=== PATIENT | male | born 1930 | race Caucasian/White ===

== ENCOUNTER 2020-08-04 07:46 | Inpatient (IN) | payer MEDICARE ==
[~2020-08-04] VITALS: Ht 172.7 cm; Wt 74.8 kg
[2020-08-04 08:55] LABS: APTT 20.8 SECONDS (22.8-39.4); CALC OSMOLALITY 273 mosm/kg (275-300); CALCIUM 8.1 mg/dL (8.5-10.1); CARBON DIOXIDE 26.1 mmol/L (21.0-32.0); CHLORIDE - SERUM 103 mmol/L (98-107); CREATININE - SERUM 1.2 mg/dL (0.6-1.3); GLUCOSE 118 mg/dL (74-106); INR 1.14 (0.85-1.17); POTASSIUM - SERUM 4.6 mmol/L (3.5-5.1); PROTIME 13.5 SECONDS (11.6-15.0); SODIUM 136 mmol/L (136-145); UREA NITROGEN 14 mg/dL (7-18); eGFR NON AFRICAN AMERICAN 61 mL/min (90-120)
[2020-08-04 09:16] LABS: ALBUMIN 3.3 g/dL (3.4-5.0); ALKALINE PHOSPHATASE 127 U/L (30-120); ALT (SGPT) 15 U/L (10-68); BILIRUBIN - TOTAL 0.35 mg/dL (0.2-1.3); CKMB 1.4 U/L (0.0-3.6); CREATINE KINASE 119 UL (21-232); PRO BNP 12046 pg/mL (0-450); PROTEIN - SERUM 7.1 g/dL (6.4-8.2); TROPONIN-I 0.064 ng/mL (0.000-0.060)
--- NOTE | 2020-08-04 09:25 | NUR ---
TROP 0.064 DR ALFONSO NOTIFIED
[2020-08-04 09:35] LABS: BASOPHILS 2.1 % (0-2); EOSINOPHILS 0.5 % (0-7); LYMPHOCYTES 22.5 % (15-50); MCHC 28.5 g/dL (31.0-37.0); MCV 65.4 fL (80.0-100.0); MEAN PLATELET VOLUME 7.2 fL (7.4-10.4); MONOCYTES 5.7 % (2-11); NEUTROPHILS 69.2 % (40-80); PLATELET COUNT 487 10x3/uL (130-400); RDW 19.6 % (11.5-14.5); WBC 8.1 10x3/uL (4.8-10.8)
[2020-08-04 09:37] LABS: HEMATOCRIT 16.4 % (42.0-54.0); HEMOGLOBIN 4.7 g/dL (13.5-17.5); MCH 18.7 pg (26.0-34.0)
--- NOTE | 2020-08-04 09:43 | NUR ---
HGB 4.[address] ALFONSO NOTIFIED
[2020-08-04 10:32] LABS: % SATURATION 2 % (15-55); IRON 10 ug/dl (35-150); TOTAL IRON BIND CAPACITY 348 ug/dl (260-445); UNSAT IRON BIND CAPACITY 338 ug/dl (150-375)
[2020-08-04 17:45] VITALS: BP 164/92
[2020-08-04 19:00] VITALS: BP 166/82
--- NOTE | 2020-08-04 19:58 | NUR ---
3rd unit of prbc started at this time
[2020-08-04 20:00] VITALS: BP 160/89
[2020-08-04 21:00] VITALS: BP 162/90
--- NOTE | 2020-08-04 21:08 | NUR ---
PT ASSISTED INTO STANDING POSITION TO USE URINAL. PT ASSISTED BACK INTO BED INTO A POSITION OF COMFORT. NO ACUTE DISTRESS NOTED, BED IN LOWEST POSITION, CALL LIGHT WITHIN REACH
[2020-08-04 22:00] VITALS: BP 152/82
[2020-08-04 23:00] VITALS: BP 137/78
[2020-08-05] VITALS (7 sets, daily range): BP systolic 114–143; BP diastolic 50–70; Ht 172.7 cm; Wt 74.8 kg
[2020-08-05 07:33] LABS: ALBUMIN 2.9 g/dL (3.4-5.0); BILIRUBIN - TOTAL 0.78 mg/dL (0.2-1.3); CALCIUM 7.6 mg/dL (8.5-10.1); CARBON DIOXIDE 24.7 mmol/L (21.0-32.0); CREATININE - SERUM 1.1 mg/dL (0.6-1.3); PROTEIN - SERUM 6.3 g/dL (6.4-8.2)
[2020-08-05 07:36] LABS: ANION GAP 12.9 mmol/L (8-16); POTASSIUM - SERUM 3.6 mmol/L (3.5-5.1)
--- NOTE | 2020-08-05 09:16 | NUR ---
SPOKE WITH LAURA IN LAB, STATED SHE WOULD NOTIFY TECHS THAT PT H&H WERE TO BE DONE STAT
[2020-08-05 09:46] LABS: BASOPHILS 1.2 % (0-2); EOSINOPHILS 0.7 % (0-7); LYMPHOCYTES 14.5 % (15-50); MCH 22.1 pg (26.0-34.0); MEAN PLATELET VOLUME 7.4 fL (7.4-10.4); MONOCYTES 8.6 % (2-11); PLATELET COUNT 407 10x3/uL (130-400); RDW 23.7 % (11.5-14.5); WBC 8.8 10x3/uL (4.8-10.8)
[2020-08-05 09:52] LABS: HEMATOCRIT 27.5 % (42.0-54.0); HEMOGLOBIN 8.5 g/dL (13.5-17.5); MCV 71.2 fL (80.0-100.0); RBC 3.86 10x6/uL (4.20-6.10)
[2020-08-05 15:41] LABS: HEMATOCRIT 29.8 % (42.0-54.0); HEMOGLOBIN 8.9 g/dL (13.5-17.5)
[2020-08-05 22:11] LABS: HEMATOCRIT 27.2 % (42.0-54.0); HEMOGLOBIN 8.4 g/dL (13.5-17.5)
--- NOTE | 2020-08-05 22:39 | NUR ---
PATIENT REFUSING TO WEAR TELEMENTRY MONITOR. STATES""GET THIS DAM THING OFF ME" ATTEMPTED TO EDUCATE ON REASON FOR TELEMENTRY. STATES HE DOESNT HAVE HEART PROBLEMS AND INSIST I TAKE IT OFF. TELEMENTRY REMOVED AND SENT BACK TO ICU TO BAMBI ACOSTA
--- NOTE | 2020-08-06 01:46 | NUR ---
PATIENT HAS PULLED OUT IV. REFUSES TO LET THIS NURSE RESTART IT. STATES" DAM THING KEEPS GETTING TANGLED UP AND IM TRYING TO SLEEP."
[2020-08-06 03:41] LABS: ANION GAP 11.5 mmol/L (8-16); BILIRUBIN - TOTAL 0.32 mg/dL (0.2-1.3); CALCIUM 7.7 mg/dL (8.5-10.1); CARBON DIOXIDE 27.5 mmol/L (21.0-32.0); CREATININE - SERUM 1.3 mg/dL (0.6-1.3); PROTEIN - SERUM 6.5 g/dL (6.4-8.2)
[2020-08-06 03:43] LABS: HEMATOCRIT 26.9 % (42.0-54.0); HEMOGLOBIN 8.3 g/dL (13.5-17.5)
--- NOTE | 2020-08-06 03:53 | NUR ---
I have reviewed this patient and I concur with the Shift Assessment completed by the Licensed Practical Nurse today this shift.
[2020-08-06 06:48] LABS: BASOPHILS 1.3 % (0-2); EOSINOPHILS 2.1 % (0-7); HEMATOCRIT 28.8 % (42.0-54.0); HEMOGLOBIN 8.8 g/dL (13.5-17.5); LYMPHOCYTES 14.9 % (15-50); MCH 22.1 pg (26.0-34.0); MCHC 30.7 g/dL (31.0-37.0); MEAN PLATELET VOLUME 7.3 fL (7.4-10.4); NEUTROPHILS 74.7 % (40-80); PLATELET COUNT 443 10x3/uL (130-400); RDW 24.4 % (11.5-14.5); WBC 10.7 10x3/uL (4.8-10.8)
--- NOTE | 2020-08-06 08:00 | NUR ---
PATIENT INSISTANT ON WANTING TO GO HOME. AMBULATES WITH CANE WITH LUNGS DIMINISHED TO BLQ ANTERIOR. PT VERY KENAITZE BUT ABLE TO CONVERSE WITH LOW LOUD TONES.ENCOURAGED TO USE CALL LIIGHT FOR ASSSIT.
[2020-08-06 09:19] VITALS: BP 171/87
[2020-08-06 10:39] LABS: HEMATOCRIT 31.8 % (42.0-54.0); HEMOGLOBIN 9.4 g/dL (13.5-17.5)
[2020-08-06] MEDS ORDERED: OMNICEF300 MG PO (11:42)
[2020-08-06] MEDS ORDERED: THERAGRAN M [BK1 TAB PO (11:42)
[2020-08-06] MEDS ORDERED: ZITHROMAX500 MG PO (11:42)
[2020-08-06 12:51] VITALS: BP 143/74
--- NOTE | 2020-08-06 14:16 | NUR ---
VERBALIZED UNDERSTANDING OF DISCHARGE INSTRUCTIONS AND STABLE AT TIME OF DISCHARGE.
--- NOTE | 2020-08-06 18:52 | MORECARE ---
CASE MANAGEMENT DISCHARGE SUMMARY PATIENT: JOY JOHNSON UNIT: [id number] ADM DATE: 08/04/20 AGE: 89 : [birth year] SEX: M ROOM/BED: D.2201 AUTHOR: SAMARIA,DOC PHYSICIAN: REFERRING PHYSICIAN: KURT MEJIA MD DATE OF SERVICE: 08/06/20 Case Management Discharge Planning Summary DCP REVIEW SUMMARY ANTICIPATED D/C DATE: 08/06/2020 EXPECTED LOS : 2 CASE STATUS: DCP Initiated INITIAL REVIEW: 08/04/2020 INITIAL REVIEWER: Palmer Golden FINAL DISCHARGE DISPOSITION: : FINAL REVIEWER: FINAL REVIEW DATE: DCP Focus Questions & Answers QUESTION: ANSWER : PATIENT: JOY JOHNSON ENCOUNTER: [id number] MEDICAL RECORD#: [id number] ADMISSION DATE: 08/04/2020 DISCHARGE DATE: 08/06/2020 ATTENDING MD: KURT JIMENEZ : AGE: 89 MARITAL STATUS: S DC PLAN ID: [id number] FACILITY: [facility] PRINTED ON: 08/06/20 18:52 CT All edits/amendments must be made on the electronic document DICTATION DATE: 08/06/201851 AMER[employer] SIGN LANGUAGE INTERPRETER: LIA 08/06/201851 RPT#: [id number] DC DATE:08/06/20 STATUS: DIS IN [facility] [address] [place] [address] END OF REPORT
--- NOTE | 2020-08-06 19:03 | MORECARE ---
CASE MANAGEMENT DISCHARGE SUMMARY PATIENT: JOY JOHNSON UNIT: [id number] ADM DATE: 08/04/20 AGE: 89 : [birth year] SEX: M ROOM/BED: D.2201 AUTHOR: JVOON MERA PHYSICIAN: REFERRING PHYSICIAN: KURT MEJIA MD DATE OF SERVICE: 08/06/20 Case Management Discharge Planning Summary COMMENTS ENTERED DATE: 08/06/20 18:54 CT COMMENT TYPE: Discharge Planning REVIEWER: Palmer Golden CM met with patient to complete DC plan and to evaluate needs. Patient lives independently alone with some support but the patient did not give CM a person to notify. Patient stated that his home is safe and has electricity and running water. Patient stated that he is able to enter his home without difficulty. Patient is hard of hearing. Patient stated that he has no problems paying for medications and he fills his medications at [facility]. At discharge, the patient plans to return home and feels this is a safe discharge. CM discussed availability of home health, rehab services, and medical equipment. Patient declined HHS, SNF, IPR, and DME. Patient stated that he has wheelchair but he doesn't use it. Patient has a cane. CLIFFORD refusal for Home Health signed and placed in chart. Patient voiced no other needs at this time and is satisfied with DC plan. Transportation provider at discharge will be with via cab paid by [facility] voucher. DC IMM delivered, explained, signed by the patient, and placed in chart. Signed form also left with the patient. CM will continue to follow and will assist as needed with dc plans/needs. DCP REVIEW SUMMARY ANTICIPATED D/C DATE: 08/06/2020 EXPECTED LOS : 2 CASE STATUS: DCP Initiated INITIAL REVIEW: 08/04/2020 INITIAL REVIEWER: Palmer Golden FINAL DISCHARGE DISPOSITION: : FINAL REVIEWER: FINAL REVIEW DATE: DCP Focus Questions & Answers DCP Evaluation QUESTION: ANSWER Patient gives permission to discuss discharge plans with: (name, relationship and number) : NONE Patient's ability to cope with chronic illness : d. No chronic illness Patient's current cognitive status: : *Oriented to person, place, situation, time and present Family / Caregiver's ability to cope with chronic illness: : a. Adequate (ability to meet patient's medical needs, ensures patient attends medical appts.) Patient and/or caregiver agree upon recommended discharge plan? : Yes Physical Status: : Independent with ADL's Family / Caregiver's ability to cope with chronic illness: : a. Adequate (ability to meet patient's medical needs, ensures patient attends medical appts.) Functional screen assessment: : Basic needs can adequately be met by self Does the patient have the ability to pay for or attain post discharge needs / services? : Yes Living Arrangements: : Home Alone with Support Is there a likelihood that the patient will require additional services to return to the preadmission environment? : No Equipment needed for post hospitalization: : None Baseline cognitive status: : *Oriented to person, place, situation, time and present Patient with capacity for self-care or can be cared for in same environment as prior to hospitalization? : Yes Physical environment modification needed / anticipated for discharge: : No Medication Management: : Patient states can afford medications Medication Management: : Patient states can read and understand medication labels [facility] Does Patient have transportation to get home and to follow-up medical appointments when discharged from the hospital? : Yes Would patient like to participate in any Care Coordination programs (if applicable): : Not applicable Does the patient have electricity at home? : Yes Does the patient have running water in their house? : Yes Equipment in use: : Cane - Single Leg Equipment in use: : Wheelchair Mental health screen: : No mental health history DCP Re-evaluation QUESTION: ANSWER Would patient like to participate in any Care Coordination programs (if applicable): : Not applicable PATIENT: JOY JOHNSON ENCOUNTER: [id number] MEDICAL RECORD#: [id number] ADMISSION DATE: 08/04/2020 DISCHARGE DATE: 08/06/2020 ATTENDING MD: KURT JIMENEZ : AGE: 89 MARITAL STATUS: S DC PLAN ID: [id number] FACILITY: [facility] PRINTED ON: 08/06/20 19:02 CT All edits/amendments must be made on the electronic document DICTATION DATE: 08/06/201901 ENVELOPE MAKER: LIA 08/06/201901 RPT#: [id number] DC DATE:08/06/20 STATUS: DIS IN [facility] [address] [place] [address] END OF REPORT
--- NOTE | 2020-08-08 10:19 | MORECARE ---
CASE MANAGEMENT DISCHARGE SUMMARY PATIENT: JOY JOHNSON UNIT: [id number] ADM DATE: 08/04/20 AGE: 89 : [birth year] SEX: M ROOM/BED: D.2201 AUTHOR: JOVON MERA PHYSICIAN: REFERRING PHYSICIAN: KURT MEJIA MD DATE OF SERVICE: 08/08/20 Case Management Discharge Planning Summary COMMENTS ENTERED DATE: 08/06/20 18:54 CT COMMENT TYPE: Discharge Planning REVIEWER: Palmer Golden CM met with patient to complete DC plan and to evaluate needs. Patient lives independently alone with some support but the patient did not give CM a person to notify. Patient stated that his home is safe and has electricity and running water. Patient stated that he is able to enter his home without difficulty. Patient is hard of hearing. Patient stated that he has no problems paying for medications and he fills his medications at [facility] on [facility]. At discharge, the patient plans to return home and feels this is a safe discharge. CM discussed availability of home health, rehab services, and medical equipment. Patient declined HHS, SNF, IPR, and DME. Patient stated that he has wheelchair but he doesn't use it. Patient has a cane. CLIFFORD refusal for Home Health signed and placed in chart. Patient voiced no other needs at this time and is satisfied with DC plan. Transportation provider at discharge will be with via cab paid by [facility] voucher. DC IMM delivered, explained, signed by the patient, and placed in chart. Signed form also left with the patient. CM will continue to follow and will assist as needed with dc plans/needs. DCP REVIEW SUMMARY ANTICIPATED D/C DATE: 08/06/2020 EXPECTED LOS : 2 CASE STATUS: DCP Initiated INITIAL REVIEW: 08/04/2020 INITIAL REVIEWER: Palmer Golden FINAL DISCHARGE DISPOSITION: : FINAL REVIEWER: FINAL REVIEW DATE: DCP Focus Questions & Answers DCP Evaluation QUESTION: ANSWER Patient and/or caregiver agree upon recommended discharge plan? : Yes Family / Caregiver's ability to cope with chronic illness: : a. Adequate (ability to meet patient's medical needs, ensures patient attends medical appts.) Patient's current cognitive status: : *Oriented to person, place, situation, time and present Patient's ability to cope with chronic illness : d. No chronic illness Patient gives permission to discuss discharge plans with: (name, relationship and number) : NONE Does the patient have the ability to pay for or attain post discharge needs / services? : Yes Functional screen assessment: : Basic needs can adequately be met by self Family / Caregiver's ability to cope with chronic illness: : a. Adequate (ability to meet patient's medical needs, ensures patient attends medical appts.) Physical Status: : Independent with ADL's Equipment needed for post hospitalization: : None Is there a likelihood that the patient will require additional services to return to the preadmission environment? : No Living Arrangements: : Home Alone with Support Patient with capacity for self-care or can be cared for in same environment as prior to hospitalization? : Yes Baseline cognitive status: : *Oriented to person, place, situation, time and present Physical environment modification needed / anticipated for discharge: : No Medication Management: : Patient states can read and understand medication labels Medication Management: : Patient states can afford medications [facility] Does Patient have transportation to get home and to follow-up medical appointments when discharged from the hospital? : Yes Would patient like to participate in any Care Coordination programs (if applicable): : Not applicable Does the patient have electricity at home? : Yes Does the patient have running water in their house? : Yes Equipment in use: : Wheelchair Equipment in use: : Cane - Single Leg Mental health screen: : No mental health history DCP Re-evaluation QUESTION: ANSWER Would patient like to participate in any Care Coordination programs (if applicable): : Not applicable PATIENT: JOY JOHNSON ENCOUNTER: [id number] MEDICAL RECORD#: [id number] ADMISSION DATE: 08/04/2020 DISCHARGE DATE: 08/06/2020 ATTENDING MD: KURT JIMENEZ : AGE: 89 MARITAL STATUS: S DC PLAN ID: [id number] FACILITY: [facility] PRINTED ON: 08/08/20 10:19 CT All edits/amendments must be made on the electronic document DICTATION DATE: 08/08/20 1019 HOSPICE SOCIAL WORKER: LIA 08/08/20 1019 RPT#: [id number] DC DATE:08/06/20 STATUS: DIS IN [facility] [address] [place] [address] END OF REPORT
== END 2020-08-06 14:19 | disposition home or self-care (01) | DRG 811 ==
LOC: D.ER 07:46 → D.EDHOLD 10:09 → D.MS 10:09
PROVIDERS: Emergency Medicine; ADMIT Emergency Medicine; ATTEND Emergency Medicine
DX: D50.9 Iron deficiency anemia, unspecified (principal); J18.9 Pneumonia, unspecified organism; I48.91 Unspecified atrial fibrillation; F12.90 Cannabis use, unspecified, uncomplicated; R06.00 Dyspnea, unspecified